=== PATIENT | male | born 1965 | race Caucasian/White ===

== ENCOUNTER 2017-01-18 13:42 | Inpatient (IN) ==
[2017-01-18 14:13] LABS: MANUAL DIFF NEEDED? NO
[2017-01-18 14:17] LABS: BASO% 0.5 % (0.0-0.8); EOS# 0.03 X1000 (0.0-0.7); EOS% 0.5 % (0.0-10.0); HEMATOCRIT 41.2 % (42.0-52.0); HEMOGLOBIN 14.8 g/dL (14.0-18.0); IMM GRAN# 0.02 X1000 (0.0-0.04); IMM GRAN% 0.3 % (0.0-0.5); LYMPH# 1.67 X1000 (1.2-3.4); MCH 31.9 PG (27-31); MCHC 35.9 g/dL (33-37); MCV 88.8 FL (81-99); MONO# 0.89 X1000 (0.11-0.59); MONO% 14.9 % (1.7-9.3); MPV 10.6 FL (7.4-10.4); NEUT% 55.8 % (42.2-75.2); PLT 211 X1000 (130-400); RBC 4.64 XMIL (4.7-6.1)
[2017-01-18] MEDS ORDERED: NS 1,000 ML IV ONE (14:28)
[2017-01-18 14:29] LABS: INR 1.16; PROTIME 12.3 Seconds (9.2-11.7); PTT 27.1 Seconds (22.0-36.0)
[2017-01-18] MEDS ORDERED: ATIVAN IV ONE (14:29)
--- NOTE | 2017-01-18 14:41 | PROVIDER DOCUMENTATION ---
HPI-General Adult - General Chief Complaint: Weakness Stated Complaint: WEAKNESS,THROAT CANCER Time Seen by Provider: 01/18/17 14:28 Source: patient, family Allergies/Adverse Reactions: Patient Allergies Allergy/AdvReac Type Severity Reaction Status Date / Time morphine AdvReac Unknown Unknown Verified 01/18/17 14:28 Home Medications: Home Medication List Medication Instructions Recorded Confirmed Last Taken Type Lorazepam 1 mg PO DAILY 12/17/16 01/18/17 01/17/17 History Losartan [Cozaar] 25 mg PO DAILY 12/17/16 01/18/17 01/17/17 History Metformin [Glucophage] 500 mg PO DAILY 12/17/16 01/18/17 01/17/17 History Promethazine [Phenergan] [address] Q6H PRN PRN #20 supp 12/17/16 01/18/17 Rx - History of Present Illness -Gen Adult Nature of Presenting Problems: 51 yo WM with laryngeal cancer has completed radiation, unable to tolerate chemo. He has had difficulty swallowing for 4 weeks. He has lost 70 lbs over 4 weeks. He was supposed to be admitted last week for fluids and stabilization but declined when his vomiting improved. Over the weekend unable to swallow much. Scheduled for appt with [facility] next week for PEG but 'he won't make it that long.' Apparently PCP onboard with inpatient treatment. Location of Pain/Injury: reports: neck Pain Radiation: reports: no radiation Quality of Pain: reports: none Severity: reports: mild Onset/Duration: reports: other Timing: reports: still present Context/Activities at Onset: reports: eating Modifying Factors: improves with: nothing Associated Symptoms: reports: anxiety, fatigue, malaise, nausea. denies: chest pain, constipation, cough, diarrhea, fever/chills, genitourinary problems, headaches, heartburn, sinus congestion/drainage, shortness of breath Review of Systems - Adult - REVIEW OF SYSTEMS - ADULT Constitutional: reports: no symptoms reported Eyes: reports: no symptoms reported Ears, Nose, Mouth & Throat: reports: hoarseness, throat pain Cardiovascular: reports: no symptoms reported Respiratory: reports: no symptoms reported Gastrointestinal: reports: no symptoms reported Genitourinary: reports: no symptoms reported Musculoskeletal: reports: no symptoms reported Integumentary: reports: no symptoms reported Neurological: reports: no symptoms reported Psychiatric: reports: anxiety, depression Endocrine: reports: no symptoms reported Hematologic/Lymphatic: reports: no symptoms reported Allergic/Immunologic: reports: no symptoms reported All Other Systems: Reviewed and Negative Past History - Adult - PAST MEDICAL HISTORY-ADULT Review of Records: reports: Old Records Reviewed, Nursing Assessment Review, Medications Reviewed, Social history reviewed & non-contributory. Major Childhood Illnesses: reports: denies history Cardiovascular: reports: HTN Respiratory: reports: sleep apnea Gastrointestinal: reports: GERD, ulcer Obstetrical/Gynecological: reports: denies history Genitourinary: reports: denies history Musculoskeletal: reports: denies history Neurological: reports: denies history Endocrine/Immune: reports: Diabetes Other Conditions: reports: denies history - PRIOR SURGERIES/PROCEDURES Surgical/Procedure History: reports: hernia repair, orthopedic (extremity) - IMMUNIZATION STATUS Childhood Immunizations: See Nurse Assessment Flu Vaccine: See Nurse Assessment - FAMILY HISTORY Family History: reviewed, not pertinent - SOCIAL HISTORY Smoking: denies Substance Use: benzodiazepines Alcohol Use Frequency: never Living Situation: family Physical Exam-General - PHYSICAL EXAM-ADULT Initial Vital Signs Reviewed: Yes - CONSTITUTIONAL General Appearance: no apparent distress - EYES Eyes: pale conjunctivae, sunken eyes - HEAD, EARS, NOSE, MOUTH & THROAT HENMT: dental decay, other (dry membranes) - NECK Neck: non-tender, full range of motion, supple, other (acanthosis of neck skin) . negative: normal inspection, carotid bruit - RESPIRATORY Respiratory: chest non-tender, lungs clear, normal breath sounds, no pleuratic chest pain, no respiratory distress, no accessory muscle use - CARDIOVASCULAR Cardiovascular: normal peripheral pulses, regular rate, rhythm, tachycardia - GASTROINTESTINAL (ABDOMEN) Abdominal Exam: non tender, soft - MUSCULOSKELETAL Back Exam: no CVA tenderness Extremity: no pedal edema, no calf tenderness - NEUROLOGIC Neurologic: grossly normal, no motor/sensory deficits - PSYCHIATRIC Psych/Mental Status: oriented x 3, disheveled, depressed affect Progress - PLAN OF CARE/RESULTS Progress/Plan/Lab Results: Vital Signs Temp Pulse Resp BP Pulse Ox 01/18/17 15:21 90 9 L 98 01/18/17 13:55 90 7 L 136/103 98 01/18/17 13:44 98.4 F 113 H 18 141/96 100 morphine Adverse Reaction (Unknown, Verified 01/18/17 14:28) Unknown anger Lorazepam 1 mg PO DAILY 12/17/16 Losartan [Cozaar] 25 mg PO DAILY 12/17/16 Metformin [Glucophage] 500 mg PO DAILY 12/17/16 Promethazine [Phenergan] [address] Q6H PRN PRN #20 supp 12/17/16 Laboratory 01/18/17 01/18/17 01/18/17 14:03 14:03 14:03 WBC RBC Hgb Hct MCV MCH MCHC RDW Std Deviation Plt Count MPV Immature Gran % (Auto) Neut % (Auto) Lymph % (Auto) [place] % (Auto) Eos % (Auto) Baso % (Auto) Immature Gran # (Auto) Neut # (Auto) Lymph # (Auto) [place] # (Auto) Eos # (Auto) Baso # (Auto) PT 12.3 H INR 1.16 PTT (Actin FS) 27.1 Sodium 125 L Potassium 3.6 Chloride 85 L Carbon Dioxide 23 L Anion Gap 17 BUN 34 H Creatinine 1.8 H Estimated GFR/1.73 m2 40 BUN/Creatinine Ratio 19 Glucose 89 Calculated Osmolality 259 Calcium 10.0 Total Bilirubin 0.74 AST 26 ALT 34 Alkaline Phosphatase 71 Creatine Kinase 65 Troponin T 0.020 Total Protein 8.0 Albumin 3.7 Globulin 4.3 Albumin/Globulin Ratio 0.9 01/18/17 14:03 WBC 5.96 RBC 4.64 L Hgb 14.8 Hct 41.2 L MCV 88.8 MCH 31.9 H MCHC 35.9 RDW Std Deviation 13.2 Plt Count 211 MPV 10.6 H Immature Gran % (Auto) 0.3 Neut % (Auto) 55.8 Lymph % (Auto) 28.0 [place] % (Auto) 14.9 H Eos % (Auto) 0.5 Baso % (Auto) 0.5 Immature Gran # (Auto) 0.02 Neut # (Auto) 3.32 Lymph # (Auto) 1.67 [place] # (Auto) 0.89 H Eos # (Auto) 0.03 Baso # (Auto) 0.03 PT INR PTT (Actin FS) Sodium Potassium Chloride Carbon Dioxide Anion Gap BUN Creatinine Estimated GFR/1.73 m2 BUN/Creatinine Ratio Glucose Calculated Osmolality Calcium Total Bilirubin AST ALT Alkaline Phosphatase Creatine Kinase Troponin T Total Protein Albumin Globulin Albumin/Globulin Ratio Orders Category Date Time Status CBC WITH ELECTRONIC DIFF [HEME] Stat Lab 01/18/17 14:03 Completed CK PROFILE [SP CHEM] Stat Lab 01/18/17 14:03 Completed COMPREHENSIVE METABOLIC PANEL [CHEM] Stat Lab 01/18/17 14:03 Completed PROTIME WITH INR [COAG] Stat Lab 01/18/17 14:03 Completed PTT [COAG] Stat Lab 01/18/17 14:03 Completed TROPONIN T Stat Lab 01/18/17 14:03 Completed URINALYSIS W/POSS RFLX CULT [URINALYSIS] Stat Lab 01/18/17 13:48 Uncollected 0.9% Sodium Chloride Inj [Ns] 1,000 ml Med 01/18/17 14:28 Active IV 999 mls/hr Lorazepam [Ativan] Med 01/18/17 14:29 Discontinued 1 mg IV NOW ONE Pulse Oximetry Stat Oth 01/18/17 13:48 Active EKG [EKG] Stat Ther 01/18/17 13:47 Ordered Departure - Departure Time of Disposition Order: 16:00 DIAGNOSIS: Throat cancer Dysphagia Qualifiers: Dysphagia type: other dysphagia Qualified Code(s): R13.19 - Other dysphagia Disposition: ADMITTED INPATIENT 09 Certified Medical Emergency: Urgent Condition: Stable
[2017-01-18 14:45] LABS: ALBUMIN 3.7 g/dL (3.5-5.0); POTASSIUM 3.6 mmol/L (3.5-5.1); TOTAL BILIRUBIN 0.74 mg/dL (0.20-1.00)
--- NOTE | 2017-01-18 15:25 | ED EKG INTERP ---
EKG Interpretation - EKG Time of EKG reading by physician:: 13:50 EKG Read and Signed by:: Javier Mann EKG Interpretation (*Must complete 3 of following elements*): Normal Rate: 103 Rhythm: sinus tachycardia Attestation - Scribe Verification/Attestation Scribe:: Silvia Gutierrez Acting as Scribe for:: Javier Mann Scribe documention review:: This chart was documented by a scribe and accurately reflects the service the provider performed and the decisions made by the provider.
[2017-01-18] MEDS ORDERED: NS 1,000 ML IV SCH (16:15)
--- NOTE | 2017-01-18 16:57 | HISTORY AND PHYSICAL ---
PRIMARY CARE PROVIDER: HUMBERTO Walker, with Dr. Giang. ONCOLOGIST: Dr. Lund. OUTSIDE CUTTER: Dr. Mascorro. CHIEF COMPLAINT: Severe difficulties with swallowing. HISTORY OF PRESENT ILLNESS: Mr. Oswald Do Jr. is a 51-year-old male. He is in no acute distress but has a recent history of throat cancer, receiving radiation. His last radiation treatment was this last Thursday. He apparently has had a 70 pounds weight loss in the last 5 weeks. He has not had food for 4 weeks, only sips of water, and even this causes severe nausea and gagging. He did have an appointment with Dr. Mascorro . They were to see him about a PEG tube but starting last week he went to go see Kimberly Alston who felt he needed to be hospitalized for assistance with dehydration, needing IV fluids, and vomiting but he felt better on Thursday and did not come. Yesterday he was weak, more weak today, and his made him come. She also states that he has a significant cough and that he coughs up a large amount of white to yellow phlegm. He only has nausea and vomiting with swallowing only. Will admit and consult Dr. Lund and Dr. Mascorro for further work up. Will keep him NPO. Hopefully PEG tube soon. It not, we will need to start on parenteral nutrition. PAST MEDICAL HISTORY: Diabetes mellitus type 2, hypertension, morbid obesity, depression, anxiety, and now throat cancer. PAST SURGICAL HISTORY: Umbilical hernia repair and right shoulder surgery. SOCIAL HISTORY: Smokes less than 1 pack per day. Denies alcohol or illicit drug use. FAMILY HISTORY: Noncontributory. ALLERGIES: Morphine. HOME MEDICATIONS: Cozaar 25 mg p.o. daily, metformin 500 mg p.o. daily, Ativan 1 mg p.o. daily, Phenergan 25 mg rectal every 6 hours as needed. REVIEW OF SYSTEMS: Fourteen point review of systems were complete. All were negative except for those mentioned in the above HPI. He is having problems with constipation secondary to his dehydration and decreased p.o. intake. He with laxatives had 2-3 bowel movements this past . No other complaints. LABORATORY DATA: White blood cells 5,000, hemoglobin 14, hematocrit 41, platelet count 211,000. INR 1.16, PTT 27.1. Sodium 125, potassium 3.6, BUN 34, creatinine 1.8 with a GFR of 40. Glucose 89, calcium 10, total bilirubin 0.74, AST 26, ALT 34. CK 65. Troponin 0.02. IMAGING: None. There is an EKG, sinus tach, 103 rate. PHYSICAL EXAMINATION: VITAL SIGNS: Temperature 98.4 degrees, heart rate 90, respiratory rate 18, blood pressure 141/96, O2 saturation 100% on room air. He is 6 feet tall, 236 pounds, BMI 32. GENERAL: Mr. Do is a 51-year-old male. He is in no acute distress. He is able answer questions appropriately. NECK: No JVD or carotid bruits noted. The skin in the neck area is darkened from radiation. CARDIOVASCULAR: S1, S2. Regular rate and rhythm. No rubs, gallops, murmurs. PULMONARY: Clear to auscultation. Bilateral breath sounds. No accessory muscle use or work of breathing noted. GI: Soft, nontender, nondistended. Positive bowel sounds x4. EXTREMITIES: No edema noted. There are +2 dorsalis and radial pulses. SKIN: Warm, dry, intact. Dark and leathery around the neck and dry. NEUROLOGIC: A O x4. Moves all extremities equally. ASSESSMENT AND PLAN: 1. Throat cancer with severe dysphagia. Will consult Dr. Mascorro. This is who he requested to see. He had an appointment on with him and has seen him about, the family states, 4- 5 years ago. We will do IV Protonix. Keep him NPO for possible PEG tube placement. Will add an abdominal CT. 2. Severe dehydration secondary to decreased p.o. intake. Apparently the family states he has not had anything food blount in the last 5 weeks. His albumin level is okay at 3.7. Will do IV fluid hydration until we can have a PEG tube placed for enteral nutrition. If it is going to be a while we can do Clinimix eventually. 3. Hyponatremia. IV fluid hydration with normal saline. 4. Dehydration with acute kidney injury. Again, IV fluid hydration. 5. History of diabetes mellitus type 2. Will do a sliding scale insulin with pattern blood glucoses. 6. Hypertension. Currently will hold his oral medications. 7. Anxiety and depression. 8. Morbid obesity with a body mass index of 32, but a significant 70 pounds weight loss in the last 5 weeks apparently. 9. Deep venous thrombosis prophylaxis. Will do SCDs. 10. Gastrointestinal prophylaxis. Proton pump inhibitor. Dictated by HUMBERTO Christiansen for Elijah Bay MD
[2017-01-18] MEDS ORDERED: ZOFRAN IV PRN (17:00)
[2017-01-18] MEDS ORDERED: PHENERGAN PR PRN (17:00)
--- NOTE | 2017-01-18 17:16 | Diag Imaging Result Document ---
PROCEDURE NAME: ABDOMEN FLAT/UPRIGHT - 01/18/2017 FLAT AND UPRIGHT, THREE VIEWS: FINDINGS: No bowel obstruction. No organomegaly. No abnormal abdominal calcifications. There is a tiny left pelvic calcification believed to be a phlebolith. Slight curvature to the spine. Mild arthritic changes to the hips. IMPRESSION: The liver is mildly prominent, otherwise negative exam.
--- NOTE | 2017-01-18 17:16 | Diag Imaging Result Document ---
PROCEDURE NAME: CHEST-2 VIEWS - 01/18/2017 STUDY: Frontal and lateral chest, 2 views. COMPARISON: Compared to 01/26/2015. The lungs are well expanded. The heart is not enlarged. The vessels are not distended. There are no infiltrates. No pleural effusions. IMPRESSION: No pneumonia.
[2017-01-18] MEDS: NS 1,000 ML IV SCH ×2 (18:06→20:41)
[2017-01-18 19:10] LABS: URINE CULTURE NEEDED? NO; URINE MICRO REVIEW NEEDED? NO; URINE SOURCE CLEAN CATCH
[2017-01-18 19:29] LABS: BILIRUBIN URINE NEGATIVE (NEGATIVE); BLOOD URINE NEGATIVE (NEGATIVE); COLOR YELLOW; GLUCOSE URINE NEGATIVE (NEGATIVE); LEUKOCYTES URINE NEGATIVE (NEGATIVE); NITRITE URINE NEGATIVE (NEGATIVE); PH URINE 5.5; PROTEIN URINE TRACE mg/dL (NEGATIVE); SP GRAVITY URINE 1.022; TURBIDITY URINE CLEAR (CLEAR); UROBILINOGEN URINE NORMAL (NORMAL)
[2017-01-18 19:31] LABS: UR EPITHELIAL CELLS <10 /HPF (<10); URINE BACTERIA NEGATIVE /HPF; URINE RBC <10 /HPF (<10); URINE WBC <10 /HPF (<10)
[2017-01-18] MEDS: SODIUM CHLORIDE 0.9% INJ SCH (20:41)
[2017-01-18] MEDS: PROTONIX IV SCH (20:41)
[2017-01-19] MEDS: NS 1,000 ML IV SCH ×3 (00:30→16:50)
--- NOTE | 2017-01-19 06:01 | EKG Report ---
Test Performed on : 01/18/2017 1:50:20 PM Test Reason : Weakness/Re-ordered Blood Pressure : / mmHG Vent. Rate : 103 BPM Atrial Rate : 103 BPM P-R Int : 144 ms QRS Dur : 096 ms QT Int : 372 ms P-R-T Axes : 066 058 056 degrees QTc Int : 487 ms Sinus tachycardia. Otherwise normal ECG No previous ECGs available Unconfirmed Result
[2017-01-19 06:27] LABS: MANUAL DIFF NEEDED? NO
[2017-01-19 06:37] LABS: INR 1.18; PROTIME 12.5 Seconds (9.2-11.7); PTT 29.2 Seconds (22.0-36.0)
[2017-01-19 06:43] LABS: ALBUMIN 2.7 g/dL (3.5-5.0); CALCIUM 8.7 mg/dL (8.8-10.2); MAGNESIUM 1.9 mg/dL (1.5-2.7); POTASSIUM 4.1 mmol/L (3.5-5.1); TOTAL BILIRUBIN 0.54 mg/dL (0.20-1.00); TOTAL PROTEIN 6.3 g/dL (6.3-8.3)
[2017-01-19 07:05] LABS: BASO% 0.5 % (0.0-0.8); EOS# 0.05 X1000 (0.0-0.7); EOS% 1.2 % (0.0-10.0); HEMATOCRIT 34.4 % (42.0-52.0); IMM GRAN# 0.02 X1000 (0.0-0.04); IMM GRAN% 0.5 % (0.0-0.5); LYMPH# 1.19 X1000 (1.2-3.4); MCH 31.9 PG (27-31); MCHC 34.9 g/dL (33-37); MCV 91.5 FL (81-99); MONO# 0.52 X1000 (0.11-0.59); MONO% 12.7 % (1.7-9.3); MPV 10.9 FL (7.4-10.4); NEUT% 56.1 % (42.2-75.2); PLT 137 X1000 (130-400); RBC 3.76 XMIL (4.7-6.1)
[2017-01-19] MEDS ORDERED: LEVAQUIN 500 MG/D5W 100 ML IV ONE (08:00)
[2017-01-19] MEDS: PROTONIX IV SCH ×2 (08:50→20:08)
[2017-01-19] MEDS: SODIUM CHLORIDE 0.9% INJ SCH ×2 (08:51→20:08)
[2017-01-19] MEDS: DILAUDID IV PRN ×4 (09:41→20:13)
--- NOTE | 2017-01-19 16:45 | CONSULTATION ---
DATE OF CONSULTATION: 01/19/2017 REFERRING PHYSICIAN: Dany Anderson MD PRIMARY CARE DOCTOR: Javier Mann MD REASON FOR CONSULTATION: Dysphagia, status post radiation 36 cycles for throat cancer. Requesting a PEG tube placement. HISTORY OF PRESENT ILLNESS: Mr. Do is a 51-year-old male, who was diagnosed with throat cancer in August 2016. Since that time, he had lost around 70 pounds in the last 6 months. He has finished radiation last Thursday. He received 36 degrees cycles of radiation by Dr. Meyer. He also sees Dr. Joie Lund who has given him 2 cycles of chemotherapy, but have now held chemotherapy because of his ongoing GI complaints of severe trouble with swallowing, odynophagia, dysphagia and weight loss. He was admitted on 01/18/2017 for the above symptoms, unable to take any oral food. PAST MEDICAL HISTORY: 1. Type 2 diabetes. 2. Hypertension. 3. Morbid obesity. 4. Depression. 5. Anxiety. 6. Throat cancer status post radiation, finished 6 days ago on 01/13/2017 [address] Dr[address] Joie Lund. 7. Chronic smoker. Has tried to cut down. 8. Now weight loss about 70 pounds over the last few months. PAST SURGICAL HISTORY: Umbilical hernia repair. Right shoulder surgery. SOCIAL HISTORY: He is a chronic smoker for more than 20 years. Smokes less than 1 pack per day. Denies alcohol, illicit drug abuse. He is . Supportive family at bedside. FAMILY HISTORY: None primary. ALLERGIES: Morphine. MEDICATIONS IN THE HOME: Cozaar 25 mg every day. Metformin 500 mg every day. Ativan 1 mg a day. Phenergan 25 mg every 6 hours per rectally. REVIEW OF SYSTEMS: Denies any fevers, rigors, chills, chest pain, shortness of breath, dyspnea at rest. Denies any genitourinary complaints or neurologic complaints. Does complain of feeling weak and tired and has malaise. Denies any vomiting or passing blood in the stools. MEDICATIONS IN HOSPITAL: Phenergan, Zofran, Dilaudid, diphenhydramine/aluminum hydroxide lidocaine Magic mouthwash 15 mL every tab every 8 hours, Protonix IV q.12 hours. He is currently on Ensure clear and liquid diet. PHYSICAL EXAMINATION: Vital signs: Temperature 98.7 degrees, pulse rate of 88, respiratory 16, blood pressure 141/93, saturating 100% room air. Weight: Body weight of 204 pounds 8 ounces. BMI of 27.7. General Appearance: Moderately build, moderately nourished, lying in bed, in no acute distress. HEENT: There were no icterus. Pupils equal, react to light. Neck: Supple. Chest: Decreased. Cardiac: Regular rate rhythm. No murmur. Abdomen: Soft, nontender, nondistended. Bowel sounds. No rebound. Extremities: No cyanosis, clubbing. Neurologic: He is alert, awake, oriented. LABORATORY: Hemoglobin and hematocrit is 12 and 34.4, white count of 4.1, platelet count of 137,000. Sodium 135, potassium 4.1, chloride 96, bicarb 24, anion gap 11, BUN of 29, creatinine 1.7, glucose of 75, calcium is 8.7, magnesium 1.9. Total bilirubin is 0.54. AST 21, ALT 26, alkaline phosphatase 55, total protein 6.3, albumin of 2.7. INR 1.18. X-RAY: Abdominal x-rays: The liver is mildly prominent. Otherwise, negative exam. No pneumonia on the chest x-ray. IMPRESSION/PLAN: 1. Odynophagia/Dysphagia since radiation treatment for throat cancer. Finished radiation on 01/13/2017 and has been on chemotherapy by Dr. Joie Lund. Received 2 cycles so far. 2. Weight loss of 70 pounds in the last few months. 3. Diabetes mellitus. 4. Chronic smoker. 5. Anemia. RECOMMENDATIONS: We will continue him on proton pump inhibitors for now. The patient will be on a liquid diet today. We will try Ensure and Magic mouthwash. We will schedule patient for esophagogastroduodenoscopy/percutaneous endoscopic gastrostomy tube tomorrow with Dr. Martinez. All of the risks, benefits, indications, alternatives of the procedure were discussed with the patient and family and answered all questions.
--- NOTE | 2017-01-19 16:48 | PROGRESS NOTE ---
DATE: 01/19/2017 SUBJECTIVE: This patient states that he is feeling better. He is still complaining of difficulty swallowing but otherwise he is alert and oriented x3. Not complaining about pain at this moment. OBJECTIVE: Vital Signs: Temperature 98.4 degrees, pulse 87, respiratory rate 20, blood pressure 128/98, O2 saturation 100% on room air. HEENT: Head normocephalic. PERRLA. Neck: Supple. The skin in the neck area is dark probably is related to radiation. Cardiovascular: RRR. No murmurs. Chest: Clear to auscultation. No wheezing. No rales. Abdomen: Soft, nontender, nondistended. No hepatosplenomegaly. Extremities: No edema. No clubbing. No cyanosis. Neurological: The patient is alert and oriented x3. No focal neurological deficits. LABORATORY: WBC 4.1, hemoglobin 12, hematocrit 34.4, platelet 137,000. Sodium 131, potassium 4.1, chloride 96, bicarbonate 24, BUN 29, creatinine 1.7, glucose 75, calcium 8.7, magnesium 1.9, albumin 2.7. ASSESSMENT AND PLAN: 1. Throat cancer with severe dysphagia, Dr. Mascorro has been consulted and the plan for now is to get a PEG tube placed tomorrow. After that we will consult the automatic pad making machine operator. 2. Severe dehydration secondary to decreased p.o. intake. This is getting better. Will continue with IV fluids until we can get a PEG tube placed. 3. Hyponatremia. This is getting better. Continue with treatment. He is not symptomatic. 4. Acute kidney injury. BUN and creatinine is slightly better, will continue with IV fluids. Probably this is related to a prerenal cause. 5. History of type 2 diabetes. Continue with pattern blood sugar and sliding scale insulin. 6. Hypertension. Continue with the same management. The blood pressure is stable. 7. Anxiety and depression aware. 8. Morbid obesity with a body mass index of 32. Apparently she has been losing a lot of weight about 70 pounds in the past 5 weeks. 9. Deep vein thrombosis prophylaxis. Continue with SCDs. 10. Gastrointestinal prophylaxis. Continue with PPIs. 11. Overall this patient is stable. He has been complaining of pain, I added Dilaudid to his medications and he is getting better. Tomorrow this patient will get a PEG tube and after that we will consult the automatic pad making machine operator. Av#: [id number]
[2017-01-19] MEDS: MBX SOLUTION MT PRN (16:50)
--- NOTE | 2017-01-19 18:07 | CONSULTATION ---
DATE OF CONSULTATION: 01/19/2017 REQUESTING PHYSICIAN: Dany Anderson MD REASON FOR CONSULTATION: Head and neck cancer, patient known. HISTORY OF PRESENT ILLNESS: Mr. 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 intake and weakness. He has been admitted for hydration and nutrition. The patient was last seen in our office on 01/05/2017 and was about to complete his radiation treatment. His last radiation therapy treatment was on 01/13/2017. He reports since that last treatment, he has progressively gotten weaker and has progressively had difficulty with swallowing. Currently, anytime he swallows anything he will gag and then vomit. The patient has not had anything to eat or drink in probably about 4 days. The patient has completed his 2 cycles of cisplatin with concurrent radiation. We have been consulted due to him having head and neck cancer. PAST MEDICAL HISTORY: 1. Diabetes type 2. 2. Hypertension. 3. Obesity. 4. Depression. 5. Anxiety. 6. Head and neck cancer. SOCIAL HISTORY: 1. Umbilical hernia repair. 2. Right shoulder surgery. SOCIAL HISTORY: He smokes less than 1 pack of cigarettes per day. Denies any alcohol or drug use. FAMILY HISTORY: Positive for lymphoma in both his mother and father. He also has lymphoma in an uncle and a grandmother. REVIEW OF SYSTEMS: As per the HPI. All other review of systems are either negative or noncontributory. PHYSICAL EXAMINATION: Vital Signs: Temperature 97 degrees, heart rate 88, respirations 16, blood pressure 141/93, O2 saturation 100% on room air. General: male lying in hospital bed in no acute distress. He has family members at his bedside. Head: Normocephalic, atraumatic. Eyes: Pupils equal, round, reactive. Ears, nose, throat, neck, and mouth: Oral mucosa with evidence of prior radiation treatment. He does have also scarring from radiation around his neck. Cardiovascular: S1-S2 heard, no murmurs, gallops, rubs appreciated. Respiratory: Clear to auscultation bilaterally. Normal respiratory effort. Abdomen: Soft, nondistended. Positive bowel sounds. Musculoskeletal: No bony abnormalities noted. Extremities: No swelling, no edema, no clubbing. Neurologic: Patient is alert and oriented x3. No focal motor deficits noted. LABORATORY STUDIES: Abdominal x-ray was negative. Chest x-ray was negative. White blood cells 4.11, hemoglobin 12, hematocrit 34.4, platelets 137,000. Sodium 131, potassium 4.1, chloride 96, CO2 24, BUN 29, creatinine 1.7, glucose 75. ASSESSMENT/PLAN: 1. [id number] squamous cell carcinoma of the supraglottic larynx. Patient is status post cisplatin with concurrent radiation, completing all therapy on 01/13/2017. 2. Dysphagia. Worse since completing treatment. Patient prior to his hospital admission, was scheduled to see Dr. Mascorro to discuss percutaneous endoscopic gastrostomy tube placement. Plan now is for a percutaneous endoscopic gastrostomy tube to be placed prior to his discharge. Patient seems agreeable to this. 3. Malnutrition. Patient is currently receiving intravenous fluids with electrolyte repletion. He reports that they are going to try to start some sort of p.o. dietary supplement later this evening to see if he is able to keep down whenever he consumes. Likely percutaneous endoscopic gastrostomy placement as per above. 4. Pain. Currently well controlled with his current pain regimen. Continue. Patient is currently receiving Dilaudid. 5. Mucositis, secondary to radiation therapy. Patient continue to use Magic mouthwash as needed. 6. Nausea and vomiting. The patient has intravenous antiemetics to use as needed. He is also on Protonix. We want to thank you for this consult and allowing us to participate in Mr. Do's care while he is at [facility]. We will continue to follow along and adjust our treatment plan per his hospital course. Dictated by TREVA Barney for Joie Lund MD
[2017-01-20] MEDS: DILAUDID IV PRN ×4 (00:22→11:19)
[2017-01-20] MEDS: NS 1,000 ML IV SCH ×2 (01:07→11:19)
[2017-01-20 06:10] LABS: MANUAL DIFF NEEDED? NO
[2017-01-20 06:14] LABS: BASO% 0.5 % (0.0-0.8); EOS# 0.05 X1000 (0.0-0.7); EOS% 1.2 % (0.0-10.0); HEMATOCRIT 31.5 % (42.0-52.0); HEMOGLOBIN 10.9 g/dL (14.0-18.0); LYMPH# 0.84 X1000 (1.2-3.4); LYMPH% 19.6 % (20.5-51.1); MCH 32.2 PG (27-31); MCHC 34.6 g/dL (33-37); MCV 92.9 FL (81-99); MONO# 0.67 X1000 (0.11-0.59); MONO% 15.7 % (1.7-9.3); MPV 10.3 FL (7.4-10.4); PLT 126 X1000 (130-400); RBC 3.39 XMIL (4.7-6.1)
[2017-01-20 06:36] LABS: ALBUMIN 2.8 g/dL (3.5-5.0); CALCIUM 8.8 mg/dL (8.8-10.2); POTASSIUM 3.8 mmol/L (3.5-5.1); TOTAL BILIRUBIN 0.5 mg/dL (0.20-1.00); TOTAL PROTEIN 6.2 g/dL (6.3-8.3)
[2017-01-20] MEDS: SODIUM CHLORIDE 0.9% INJ SCH (07:38)
[2017-01-20] MEDS: PROTONIX IV SCH (07:38)
[2017-01-20 07:47] VITALS: BP 121/85
[2017-01-20] MEDS ORDERED: LEVAQUIN 500 MG/D5W 100 ML IV ONE (08:00)
[2017-01-20] MEDS: MBX SOLUTION MT PRN (11:22)
[2017-01-20] MEDS ORDERED: PERCOCET-10 PO PRN (13:01)
--- NOTE | 2017-01-21 09:54 | DISCHARGE SUMMARY ---
ADMISSION DATE: 01/18/2017 DISCHARGE DATE: 01/20/2017 CONSULTATIONS: 1. Dr. Mascorro with Gastroenterology. 2. Dr. Joie Lund with Oncology. PERTINENT PROCEDURES: Abdominal x-ray showed that the liver was mildly prominent, otherwise negative. Chest x-ray showed no pneumonia. DISCHARGE DIAGNOSES: 1. Throat cancer with severe dysphagia. Dr. Mascorro is following the patient. The patient is now taking in some p.o.. They held off on a PEG tube. He will follow up with Dr. Mascorro in 2 days on . 2. Severe dehydration secondary to decreased p.o. intake. Patient improved with IV fluids. Again, he is now taking in p.o. and will follow up with Dr. Mascorro in 2 days on . 3. Hyponatremia, improving. 4. Acute kidney injury, improving. 5. Diabetes mellitus type 2. Continue with home medications. 6. Hypertension. Continue with home medications. 7. Anxiety and depression. Aware. 8. Morbid obesity with a body mass index of 32 with a weight loss of 70 pounds in 5 weeks. Again, deliverer outside was consulted to speak with the patient. He is being followed by gastroenterology. 9. Head and neck cancer, status-post cisplatin with concurrent radiation completing all therapy on 01/13/2017. 10.Mucositis secondary to radiation therapy. Continue Magic mouthwash. HOSPITAL COURSE: Briefly, Mr. Do is a 51-year-old male in no acute distress but does have a history of throat cancer. He received his last chemo and radiation on 01/13/2017. He apparently had a 70 pound weight loss in the last 5 weeks. He has not had food in 4 weeks, only sips of water and even that causes severe nausea and gagging. He did have an appointment with Dr. Mascorro on and they were to see about him getting a PEG tube but starting last week he went to go see Kimberly Alston who felt that he needed to be hospitalized for assistance with dehydration and needed IV fluids and antiemetics for his nausea and vomiting but he felt better on Thursday and did not come. The day before admission he was weak and more weak on the day of admission. He was brought in by his . The patient was admitted with a consult for Dr. Lund as well as Dr. Mascorro. He was kept n.p.o. with the hopes of getting a PEG tube soon as well as started on IV hydration. He was also found to be hyponatremic as well as to have acute kidney injury secondary to dehydration. Again, he was continued on IV fluids. The patient was started on a liquid diet with Ensures per GI and to continue his Magic mouthwash. The patient was scheduled for an EGD with PEG tube with Dr. Benton but the patient did begin to start eating and drinking more. The deliverer outside was consulted and the patient has opted to go home and follow up with Dr. Mascorro in 2 days and reassess the need for a PEG tube. VITAL SIGNS: At the time of discharge, temperature is 99.2, heart rate 83, respirations 18, and blood pressure 121/85. O2 is 100% on room air. DISCHARGE DIET: Clear liquids with Ensures t.i.d.. HOME MEDICATIONS: 1. Glucophage 500 mg p.o. daily. 2. Oxycodone 10 mg/325 mg one p.o. every 6 hours p.r.n. pain. 3. Phenergan 25 mg p.o. every 6 hours p.r.n.. 4. Cozaar 25 mg p.o. daily. The patient will start taking this medication one week after discharge. 5. Lorazepam 1 mg p.o. daily. FOLLOW UP: The patient is being discharged home. He can follow up with Dr. Mascorro in 2 days. He will follow up with his primary care provider, HUMBERTO Hubbard. The patient can return to the ED for any worsening of symptoms. Dictated by HUMBERTO Rodríguez for Dany Anderson MD
--- NOTE | 2017-02-02 18:58 | DISCHARGE SUMMARY ---
ADMISSION DATE: 01/18/2017 DISCHARGE DATE: 01/20/2017 DISCHARGE SUMMARY ADDENDUM: Please add the following diagnosis: Malnutrition, unspecified.
== END 2017-01-20 14:32 | disposition home or self-care (01) | DRG 683 ==
LOC: ED 13:42 → 4N 16:21
PROVIDERS: ATTEND Internal Medicine
DX: N17.9 Acute kidney failure, unspecified (principal); E46 Unspecified protein-calorie malnutrition; R13.19 Other dysphagia; C32.1 Malignant neoplasm of supraglottis; E87.1 Hypo-osmolality and hyponatremia; E66.01 Morbid (severe) obesity due to excess calories; E86.0 Dehydration; I10 Essential (primary) hypertension; F32.9 Major depressive disorder, single episode, unspecified; E11.9 Type 2 diabetes mellitus without complications; G47.30 Sleep apnea, unspecified; K21.9 Gastro-esophageal reflux disease without esophagitis; Z87.11 Personal history of peptic ulcer disease; F41.9 Anxiety disorder, unspecified; F17.210 Nicotine dependence, cigarettes, uncomplicated; Z68.32 Body mass index [BMI] 32.0-32.9, adult; Z92.3 Personal history of irradiation; Z79.899 Other long term (current) drug therapy; Z79.84 Long term (current) use of oral hypoglycemic drugs; D64.9 Anemia, unspecified; Z80.7 Family history of other malignant neoplasms of lymphoid, hematopoietic and related tissues; K12.33 Oral mucositis (ulcerative) due to radiation
CPT/HCPCS: 71020; 74020; 80053; 81001; 82550; 82948; 83735; 84443; 84484; 85025; 85610; 85730; 93005; 96374; C9113; J1170; J2060; J7030; S0164

== ENCOUNTER 2017-08-25 13:27 | Observation (INO) ==
[2017-08-25 13:53] LABS: URINE CULTURE NEEDED? NO; URINE MICRO REVIEW NEEDED? NO; URINE SOURCE CLEAN CATCH
[2017-08-25 14:06] LABS: BILIRUBIN URINE SMALL (NEGATIVE); BLOOD URINE NEGATIVE (NEGATIVE); COLOR ORANGE; GLUCOSE URINE NEGATIVE (NEGATIVE); LEUKOCYTES URINE NEGATIVE (NEGATIVE); NITRITE URINE NEGATIVE (NEGATIVE); PH URINE 6.5; PROTEIN URINE 100 mg/dL (NEGATIVE); SP GRAVITY URINE 1.025; TURBIDITY URINE CLEAR (CLEAR); UROBILINOGEN URINE 4 mg/dL (NORMAL)
[2017-08-25 14:07] LABS: UR EPITHELIAL CELLS <10 /HPF (<10); URINE BACTERIA NEGATIVE /HPF; URINE RBC <10 /HPF (<10); URINE WBC <10 /HPF (<10)
[2017-08-25 14:27] LABS: BASO% 0.7 % (0.0-0.8); HEMATOCRIT 37.9 % (42.0-52.0); HEMOGLOBIN 12.8 g/dL (14.0-18.0); IMM GRAN# 0.02 X1000 (0.0-0.04); IMM GRAN% 0.2 % (0.0-0.5); LYMPH# 2.07 X1000 (1.2-3.4); LYMPH% 25.2 % (20.5-51.1); MANUAL DIFF NEEDED? NO; MCH 31.1 PG (27-31); MCHC 33.8 g/dL (33-37); MONO% 14.6 % (1.7-9.3); MPV 11.9 FL (7.4-10.4); NEUT% 59.3 % (42.2-75.2); PLT 128 X1000 (130-400); RBC 4.12 XMIL (4.7-6.1)
[2017-08-25] MEDS ORDERED: NS 1,000 ML IV ONE (14:40)
[2017-08-25] MEDS ORDERED: ZOFRAN IV ONE (14:40)
[2017-08-25 15:06] LABS: AGAP 12; ALBUMIN 3.4 g/dL (3.5-5.0); ALKALINE PHOSPHATASE 169 U/L (32-122); AMYLASE 17 U/L (20-200); BUN 20 mg/dL (8-22); CALCIUM 9.4 mg/dL (8.8-10.2); CHLORIDE 87 mmol/L (98-107); COSMO 262; GOT 25 U/L (10-34); GPT 22 U/L (10-44); LIPASE 17 U/L (13-60); POTASSIUM 3.7 mmol/L (3.5-5.1); SODIUM 129 mmol/L (136-145); TCO2 30 mmol/L (25-35); TOTAL PROTEIN 8.7 g/dL (6.3-8.3)
--- NOTE | 2017-08-25 15:48 | Diag Imaging Result Doc PS360 ---
EXAM: FLAT/UPRIGHT ABD/1 VIEW CHEST HISTORY: HX THROAT CA, COUGH, N/V TECHNIQUE: Four views COMPARISON: 01/18/2017 FINDINGS: The lungs are well expanded. The heart is not enlarged. No pneumonia. No free air beneath the diaphragm. There is stool throughout the colon. The bowel loops are not dilated. No organomegaly. Mild scoliosis. There are several pelvic phleboliths. Long-standing arthritic changes to the hips. IMPRESSION: 1.No pneumonia 2.Constipation Electronically signed by Regulo Barrera 08/25/2017 3:46 PM
[2017-08-25] MEDS ORDERED: DULCOLAX PO ONE (16:01)
[2017-08-25] MEDS ORDERED: CITRATE OF MAGNESIA PO ONE ×2 (16:01→21:26)
[2017-08-25] MEDS ORDERED: SODIUM CHLORIDE 0.9% INJ ONE ×2 (16:10→17:59)
[2017-08-25] MEDS ORDERED: PHENERGAN IV ONE ×2 (16:10→17:59)
[2017-08-25] MEDS ORDERED: MISC. PHARMACY COMMUNICATION SCH (19:30)
[2017-08-25] MEDS ORDERED: NON-FORMULARY BULK MED PR ONE (19:45)
[2017-08-25 22:32] LABS: INR 1.04; PROTIME 10.9 Seconds (9.2-11.7); PTT 31.8 Seconds (22.0-36.0)
[2017-08-26] MEDS ORDERED: NS 1,000 ML IV ONE (01:53)
[2017-08-26] MEDS ORDERED: ZOFRAN IV PRN (01:53)
[2017-08-26] MEDS ORDERED: SODIUM CHLORIDE 0.9% INJ PRN (01:53)
[2017-08-26] MEDS ORDERED: MIRALAX PO ONE (01:53)
[2017-08-26] MEDS ORDERED: NS 1,000 ML ONE (02:01)
[2017-08-26] MEDS: PROTONIX IV SCH (02:12)
[2017-08-26] MEDS: SODIUM CHLORIDE 0.9% INJ SCH (02:12)
[2017-08-26 06:38] LABS: BASO% 0.5 % (0.0-0.8); HEMATOCRIT 35.1 % (42.0-52.0); HEMOGLOBIN 11.7 g/dL (14.0-18.0); LYMPH# 1.26 X1000 (1.2-3.4); MANUAL DIFF NEEDED? YES; MCH 30.9 PG (27-31); MCHC 33.3 g/dL (33-37); MCV 92.6 FL (81-99); MONO# 0.94 X1000 (0.11-0.59); MONO% 14.9 % (1.7-9.3); MPV 9.8 FL (7.4-10.4); NEUT% 64.6 % (42.2-75.2); PLT 144 X1000 (130-400); RBC 3.79 XMIL (4.7-6.1)
[2017-08-26 06:55] LABS: AGAP 8; ALKALINE PHOSPHATASE 125 U/L (32-122); BANDS 14 % (0-1); BUN 19 mg/dL (8-22); CALCIUM 8.1 mg/dL (8.8-10.2); CHLORIDE 93 mmol/L (98-107); COSMO 264; GOT 22 U/L (10-34); GPT 18 U/L (10-44); LYMPHS 14 % (21-51); MONO 16 % (1-9); POTASSIUM 3.9 mmol/L (3.5-5.1); SODIUM 131 mmol/L (136-145); TCO2 30 mmol/L (25-35); TOTAL BILIRUBIN 0.97 mg/dL (0.20-1.00)
[2017-08-26] MEDS: TYLENOL PO PRN ×2 (07:25→20:35)
[2017-08-26] MEDS ORDERED: LABETALOL IV PRN (09:22)
[2017-08-26] MEDS ORDERED: NS 1,000 ML IV SCH (09:23)
[2017-08-26] MEDS ORDERED: DULCOLAX PR ONE (09:50)
[2017-08-26] MEDS: NS 1,000 ML IV SCH ×2 (11:38→23:08)
--- NOTE | 2017-08-26 12:41 | Diag Imaging Result Doc PS360 ---
EXAM: CT THORAX/ABDOMEN/PELVIS HISTORY: fever/constipation TECHNIQUE: CT of the chest, abdomen, and pelvis with intravenous contrast and reduced radiation dose (clarity.) COMMENT: Chest: There is no evidence of abnormal fluid collection. No significant mediastinal or hilar adenopathy is present. There is however a marked the right axillary adenopathy with one such node measuring over 2 cm in size. There is a very dense nodule in the left apex measuring in excess of 9 mm. This is probably granulomatous. There is no evidence of acute pulmonary parenchymal disease. There are degenerative changes in the shoulders and lower thoracic disc spaces. ABDOMEN: There is no evidence of abdominal aortic aneurysm. The mesenteric and renal arteries are patent. The spleen is enlarged and larger than on 01/26/2015 at which time it measured slightly less than 13 cm in AP dimension, now it measures over 14.7 cm. There are prominent periportal and gastrohepatic ligament nodes. One node in the gulshan just anterior to the portal vein and measures 2.7 cm in greatest dimension. Previously this node measured 2.1 cm. The adrenal glands are stable in appearance. There are enlarged periaortic nodes below the level of the renal pedicles. These are larger than they were at the time the previous study. The liver is somewhat nodular in contour with relative enlargement of the left lobe consistent with cirrhosis. There are no definite masses. There is stool throughout the colon. The small bowel is not distended. The appendix is normal in appearance. Pelvis: No abnormal fluid collections are present. There are no masses. There is no evidence of significant adenopathy. There are facet arthropathy and degenerative disc changes in the lumbar spine. IMPRESSION: 1. Right axillary adenopathy. 2. Gastrohepatic, periportal, and periaortic adenopathy. 3. Worsening splenomegaly. Cirrhosis. Electronically signed by Tamir Renae 08/26/2017 12:39 PM
--- NOTE | 2017-08-26 13:59 | Diag Imaging Result Doc PS360 ---
EXAM: US ABDOMEN-COMPLETE INDICATION: cirrhosis COMPARISON: None. FINDINGS: No shadowing stones are identified in the gallbladder lumen. There is trace pericholecystic fluid. The wall of the gallbladder is borderline thickened. The common bile duct is normal in diameter. Sonographic Kirkland's sign was reported to be negative. The liver is enlarged measuring up to 22.3 cm in length. No discrete hepatic mass is appreciated. Portal venous flow is hepatopedal. The visualized portion of pancreas is unremarkable. The aorta and IVC are grossly unremarkable. The spleen is enlarged measuring up to 19.2 cm. The kidneys are grossly unremarkable. IMPRESSION: 1.Hepatosplenomegaly. 2.Trace fluid adjacent to the gallbladder that may simply represent trace ascites rather than fluid related to cholecystitis. Please correlate clinically. Electronically signed by Oswald Alvarez 08/26/2017 1:57 PM
[2017-08-26] MEDS ORDERED: GOLYTELY PO ONE ×2 (14:00→14:21)
[2017-08-26] MEDS: PHENERGAN IV PRN (20:17)
[2017-08-26] MEDS: LOPRESSOR PO SCH (20:35)
[2017-08-26] MEDS: MIRALAX PO SCH (22:39)
[2017-08-27] MEDS: SODIUM CHLORIDE 0.9% INJ SCH ×2 (05:15→16:33)
[2017-08-27] MEDS: PROTONIX IV SCH ×2 (05:16→16:33)
[2017-08-27 06:51] LABS: HEMATOCRIT 33.6 % (42.0-52.0); HEMOGLOBIN 11.3 g/dL (14.0-18.0); MCH 32.2 PG (27-31); MCHC 33.6 g/dL (33-37); MCV 95.7 FL (81-99); MPV 10.6 FL (7.4-10.4); RBC 3.51 XMIL (4.7-6.1)
[2017-08-27 07:13] LABS: AGAP 7; ALBUMIN 2.7 g/dL (3.5-5.0); ALKALINE PHOSPHATASE 118 U/L (32-122); BUN 15 mg/dL (8-22); CHLORIDE 94 mmol/L (98-107); COSMO 265; GOT 20 U/L (10-34); GPT 14 U/L (10-44); POTASSIUM 3.8 mmol/L (3.5-5.1); SODIUM 132 mmol/L (136-145); TCO2 31 mmol/L (25-35); TOTAL BILIRUBIN 0.93 mg/dL (0.20-1.00); TOTAL PROTEIN 7.9 g/dL (6.3-8.3)
[2017-08-27] MEDS ORDERED: MIRALAX PO SCH (09:00)
[2017-08-27] MEDS: LOPRESSOR PO SCH ×3 (09:04→22:38)
[2017-08-27] MEDS: MIRALAX PO SCH ×3 (09:04→22:38)
[2017-08-27] MEDS ORDERED: DIPRIVAN 1% ONE ×2 (10:16→10:28)
[2017-08-27] MEDS ORDERED: LABETALOL ONE (10:23)
[2017-08-27] MEDS ORDERED: XYLOCAINE-MPF 2% ONE (10:23)
[2017-08-27] MEDS ORDERED: DIFLUCAN 100 MG/NS 100 MG/50 ML IVPB IV SCH (12:00)
[2017-08-27 12:06] LABS: HEPATITIS PROFILE ACUTE SEE COMMENTS
[2017-08-27] MEDS: NS 1,000 ML IV SCH ×2 (12:14→17:10)
[2017-08-27] MEDS: CENTRUM SILVER PO SCH (12:14)
--- NOTE | 2017-08-27 14:31 | Diag Imaging Result Doc PS360 ---
EXAM: US GUIDE,BIOPSY INDICATION: h/o head and neck ca TECHNIQUE: COMPARISON: None. FINDINGS: Risks, benefits, and alternatives were discussed with the patient and informed consent was obtained. The patient was prepped and draped in sterile fashion and local anesthesia was achieved with 1% lidocaine solution. Using ultrasound guidance, an 18-gauge coaxial biopsy needle system was used to obtain three 1.3 cm core biopsies from the most prominent right axillary lymph node. There were no known complications. Hemostasis was achieved. IMPRESSION: Technically successful ultrasound-guided right axillary lymph node biopsy. Electronically signed by Oswald Alvarez 08/27/2017 2:29 PM
[2017-08-27] MEDS: TYLENOL PO PRN (18:37)
[2017-08-27] MEDS: PHENERGAN IV PRN (18:37)
[2017-08-28] MEDS: NS 1,000 ML IV SCH (05:05)
[2017-08-28] MEDS: PROTONIX IV SCH (05:06)
[2017-08-28 05:50] VITALS: BP 142/82
[2017-08-28] MEDS: LOPRESSOR PO SCH (08:39)
[2017-08-28] MEDS: MIRALAX PO SCH (08:39)
[2017-08-28] MEDS: CENTRUM SILVER PO SCH (08:39)
== END 2017-08-28 14:22 | disposition home or self-care (01) ==
LOC: EDIPHOLD 13:27 → ED 13:27 → SUATTDRO 08-26 02:03 → 3N 08-26 13:32
PROVIDERS: ATTEND Internal Medicine